=== PATIENT | female | born 1945 | race Caucasian/White ===

== ENCOUNTER 2016-12-28 13:02 | Emergency (ER) | payer MEDICARE, OTHER ==
[2016-12-28 14:04] VITALS: BP 114/63
--- NOTE | 2016-12-29 07:14 | ED Physician Documentation ---
Lower Extremity Problem - HISTORIAN Historian: patient - HPI Stated Complaint: Cat scratch Chief Complaint: Lower Extremity Problem Additional Information: scratched by feral cat right foot 6 days ago, on amoxicillin x 3-4 days, worse Location of Injury: R foot Onset: days ago (6) Timing: worse, persistent since Recent Injury: Yes (scratched by cat) Where: home Severity: moderate Quality: swelling, tenderness Front/Back of Body, Lg (Color): 1 - redness Exacerbated By: nothing Relieved By: nothing Associated Symptoms: denies: chest pain, shortness of breath, rapid heart rate, fainting Further Comments: no - ROS CONST: no problems MS/SKIN/LYMPH: leg pain, other (foot swelling and pain) CVS/RESP: none GI/: none EYES/ENT: none NERUO/PSYCH: denies: headache, difficulty walking, dizziness, anxiety, depression - PAST HX Past History: other (hyperlipidemia, htn) PE Risk Factors: hypertension Surgeries/Procedures: none Immunizations: tetanus Allergies/Adverse Reactions: Allergies Allergy/AdvReac Type Severity Reaction Status Date / Time codeine AdvReac Mild Nausea/Vomi Verified 12/28/16 13:27 ting Home Medications: Ambulatory Orders Medication Instructions Recorded Amlodipine Besylate [Amlodipine 10 mg D 06/20/13 Besylate] Hydrochlorothiazide 25 mg D 06/20/13 [Hydrochlorothiazide] Simvastatin [Simvastatin] 40 mg D 06/20/13 - SOCIAL HX Smoking History: non-smoker Alcohol Use: none Drug Use: none - FAMILY HX Family History: no significant history - VITAL SIGNS Vital Signs: Vital Signs Temp Pulse Resp BP Pulse Ox 97.9 F 82 16 114/63 99 12/28/16 13:07 12/28/16 14:02 12/28/16 14:02 12/28/16 14:02 12/28/16 14:02 - REVIEWED ASSESSMENTS Nursing Assessment Reviewed: Yes Vitals Reviewed: Yes Progress - Results/Orders Results/Orders: no testing ordered - Progress Progress: pt. given 1 gram rocephin im in er Critical Care Note - Critical Care Note Total Time (mins): 0 ED Results Lab/Radiology - Lab Results Lab Results: culture of scratch taken - Radiology Radiology Impressions: none taken - Orders Orders: ED Orders Category Date Time Status WOUND CULTURE Routine Lab 12/28/16 14:50 Received Lower Extremity Problem - EXAM General Appearance: moderate distress Hips: right hip: non-tender, normal inspection, normal range of motion, no evidence of injury Legs: right: non-tender, normal range of motion, other (redness, warmth skin right distal leg) Knees: right: non-tender, normal inspection, normal range of motion, no evidence of injury Ankle: right: other (selling, reness, warmth skin right ankle) Foot: right foot: other (laceration scabbed, foot skin reddened and warm, swollen) DTR - Lower Extremities: knee (R): 2+, knee (L): 2+, ankle (R): 2+, ankle (L): 2 + Neuro/Tendon: normal sensation, normal motor functions, normal tendon functions , no evidence tendon injury EENT: eye inspection normal, ENT inspection normal, pharynx normal, no signs of dehydration, ANGELO, no nystagmus, TM's nml RESPIRATORY: no resp distress, chest non-tender, breath sounds normal CVS: reg rate & rhythm, heart sounds normal, equal pulses JOINT: joints nml, nml ROM VASCULAR: no vascular compromise, pulses full/equal NEURO/PSYCH: oriented X3, CN's nml as tested SKIN: other (erythema right foot, ankle and lower leg) BACK: normal inspection, no CVA tenderness Discharge Clincal Impression: Cellulitis Qualifiers: Site of cellulitis: extremity Site of cellulitis of extremity: lower extremity Laterality: right Qualified Code(s): L03.115 - Cellulitis of right lower limb Referrals: Anali Samuel MD [Primary Care Provider] - 2 Days Home Medications: Ambulatory Orders Amlodipine Besylate [Amlodipine Besylate] 10 mg D 06/20/13 Hydrochlorothiazide [Hydrochlorothiazide] 25 mg D 06/20/13 Simvastatin [Simvastatin] 40 mg D 06/20/13 Comments: Discharged with script for Bactrm DS 1 p.o. bid x 10 days, wash laceration site daily with soap and water, dry, apply amalia and band aid Condition: Stable Disposition: 01 HOME, SELF-CARE Decision to Admit: NO Decision Time: 14:00
== END 2016-12-28 13:57 | disposition home or self-care (01) ==
LOC: ED 13:02
DX: L03.115 Cellulitis of right lower limb (principal)
CPT/HCPCS: 87070; 87186; 96372; 99283

== ENCOUNTER 2018-08-31 17:09 | Emergency (ER) | payer MEDICARE, OTHER ==
[2018-08-31] MEDS ORDERED: Lidocaine 1% 5ml 10 MG/ML VIAL IJ ONE (17:40)
[2018-08-31] MEDS ORDERED: methylPREDNISolone SOD SUCC 125 MG/2 ML VIAL IM ONE (17:40)
[2018-08-31] MEDS ORDERED: cefTRIAXone SODIUM 1 GM INJ IM ONE (17:40)
--- NOTE | 2018-08-31 17:43 | ED Physician Documentation ---
Upper Respiratory Symptoms - HPI Stated Complaint: Sinus congestion Chief Complaint: Cough/ Upper Respiratory Additional Information: Patient presents to ED with a 7-10 day history of nasal congestion and cough. Denies fever. Onset: days ago (7) Duration: constant Context: denies: recent foreign travel Severity: mild Associated Symptoms: sinus pain, sinus drainage, headache. denies: fever Worsened by Deep Breath: No Further Comments: no - ROS CONST/EYES: denies: weakness CVS/RESP: none LYMPH: denies: leg swelling GI/: none NEURO/PSYCH: denies: fainting, dizziness MS/SKIN: denies: muscle aches - PAST HX Lung Disease: none Surgeries/Procedures: none Allergies/Adverse Reactions: Allergies Allergy/AdvReac Type Severity Reaction Status Date / Time codeine AdvReac Mild Nausea/Vomi Verified 08/31/18 17:16 ting Home Medications: Ambulatory Orders Medication Instructions Recorded Amlodipine Besylate 10 mg PO D 06/20/13 Hydrochlorothiazide 25 mg PO D 06/20/13 Simvastatin 40 mg PO D 06/20/13 Cephalexin [Keflex] 500 mg PO QID #40 capsule 08/31/18 - SOCIAL HX Smoking History: non-smoker Alcohol Use: none Drug Use: none - FAMILY HX Family History: none - VITAL SIGNS Vital Signs: Vital Signs Temp Pulse Resp BP Pulse Ox 98.2 F 88 19 167/71 98 08/31/18 17:09 08/31/18 17:09 08/31/18 17:09 08/31/18 17:09 08/31/18 17:09 - REVIEWED ASSESSMENTS Nursing Assessment Reviewed: Yes Vitals Reviewed: Yes ED Results Lab/Radiology - Orders Orders: ED Orders Category Date Time Status Lidocaine 1% 5ml(IM or SUTURE) [Xylocaine] Med 08/31/18 17:40 Discontinued 50 mg IJ NOW ONE cefTRIAXone SODIUM [Rocephin] Med 08/31/18 17:40 Discontinued 1 gm IM NOW ONE methylPREDNISolone SOD SUCC [Solu-MEDROL] Med 08/31/18 17:40 Discontinued 125 mg IM NOW ONE Upper Respiratory Symptoms - EXAM General Appearance: no acute distress, alert EENT: PERRL, nose nml Neck: normal inspection, supple Respiratory: no resp. distress, breath sounds nml, speaks full sentences Abdomen: non-tender, no distention CVS: reg rate & rhythm, heart sounds normal, equal pulses Skin: color nml, no rash, warm,dry Extremities: non-tender, no edema Neuro/Psych: oriented x3, mood/affect nml Discharge Clincal Impression: Upper respiratory infection, viral Prescriptions: Cephalexin [Keflex] 500 mg PO QID #40 capsule Referrals: Anali Samuel MD [Primary Care Provider] - 2 Days Additional Instructions: 1. Tylenol and/or ibuprofen as needed for pain/fever 2. Sinus irrigation may be helpful 3. Mucinex daily until antibiotics are complete 4. Cool mist vaporizer with sleep 5. Follow up with PCP yadira 1 week. 6. Return to ER for new or worsening symptoms. Condition: Stable Disposition: 01 HOME, SELF-CARE Decision to Admit: NO Date of Decison to Admit: 08/31/18 Decision Time: 18:04
[2018-08-31 18:22] VITALS: BP 159/74
== END 2018-08-31 18:20 | disposition home or self-care (01) ==
LOC: ED 17:09
DX: J06.9 Acute upper respiratory infection, unspecified (principal)
CPT/HCPCS: 96372; 99283; J0696; J2930

== ENCOUNTER 2018-12-12 15:40 | Emergency (ER) | payer MEDICARE, OTHER ==
[2018-12-22 17:33] LABS: APPEARANCE,URINE CLOUDY (CLEAR); COLOR,URINE YELLOW (YELLOW); OCCULT BLOOD,URINE 2+ (NEGATIVE); UROBILINOGEN URINE 0.2 Eu (0.2-1.0)
== END 2018-12-12 16:12 ==
LOC: ED 15:40
DX: N39.0 Urinary tract infection, site not specified (principal); B96.20 Unspecified Escherichia coli [E. coli] as the cause of diseases classified elsewhere; Z16.11 Resistance to penicillins
CPT/HCPCS: 81002; 87086; 99283

== ENCOUNTER 2018-12-13 01:32 | Emergency (ER) | payer MEDICARE, OTHER ==
[2018-12-22 18:14] LABS: eGFR (Non-African) > 60
[2018-12-22 18:15] LABS: BASOPHILS % 0.5 % (0.0-1.5); NEUTROPHILS # 10.1 # k/uL (1.4-7.7)
== END 2018-12-13 02:55 ==
LOC: ED 01:32
DX: N39.0 Urinary tract infection, site not specified (principal)
CPT/HCPCS: 80053; 85025; 99283

== ENCOUNTER 2019-01-18 13:01 | Emergency (ER) | payer MEDICARE, OTHER ==
[2019-01-18 13:26] VITALS: BP 154/87
--- NOTE | 2019-01-18 13:26 | ED Physician Documentation ---
Upper Respiratory Symptoms - HISTORIAN Historian: patient - HPI Chief Complaint: Cough/ Upper Respiratory Additional Information: Patient is a 73-year-old female who presents with c/o cough that started Saturday (7 days ago)- she was seen in [place] at Urgent care on Saturday and started on Doxycycline, Medrol dose pack, ProAir, Tessalon Pearles, and Promethazine with codeine. She still c/o cough. She denies any fever, chills, shortness of breath, or chest pain. She states the cough is non productive- no shortness of breath on exertion. Onset: days ago Duration: constant Context: denies: recent foreign travel, insect bite(s) Severity: mild Associated Symptoms: other (non-productive cough). denies: fever, chills, runny nose, sinus pain Worsened by Deep Breath: No - ROS CONST/EYES: denies: weakness CVS/RESP: none LYMPH: denies: leg swelling, swollen glands GI/: none NEURO/PSYCH: denies: fainting, dizziness MS/SKIN: denies: joint pain, muscle aches - PAST HX Lung Disease: other (none) PE Risk Factors: hypertension, other (HLD) Surgeries/Procedures: cholecystectomy, other (dental) Immunizations: UTD Allergies/Adverse Reactions: Allergies Allergy/AdvReac Type Severity Reaction Status Date / Time codeine AdvReac Mild Nausea/Vomi Verified 01/18/19 13:20 ting Home Medications: Ambulatory Orders Medication Instructions Recorded Amlodipine Besylate 10 mg PO D 06/20/13 Hydrochlorothiazide 25 mg PO D 06/20/13 Simvastatin 40 mg PO D 06/20/13 Hydrochlorothiazide 25 mg PO DAILY 01/18/19 - SOCIAL HX Smoking History: non-smoker Alcohol Use: none Drug Use: none - FAMILY HX Family History: none - VITAL SIGNS Vital Signs: Vital Signs Temp Pulse Resp BP Pulse Ox 159/74 08/31/18 18:14 - REVIEWED ASSESSMENTS Nursing Assessment Reviewed: Yes Vitals Reviewed: Yes Upper Respiratory Symptoms - EXAM General Appearance: no acute distress, alert EENT: eyes nml inspection, nml ENT inspection, PERRL, pharynx nml, airway nml Neck: normal inspection Respiratory: no resp. distress, rhonchi (upper lobe- clears with cough) Abdomen: nml bowel sounds CVS: heart sounds normal, equal pulses Skin: color nml, no rash, warm,dry Extremities: non-tender, normal range of motion Neuro/Psych: oriented x3, neuro intact, mood/affect nml Discharge Clincal Impression: Upper respiratory infection, viral Referrals: Anali Samuel MD [Primary Care Provider] - 2 Days Additional Instructions: 1. Sinus irrigation may be helpful 2. Mucinex twice a day until antibiotics are complete 3. Cool mist vaporizer with sleep 4. Zyrtec 10 mg daily 5. Follow up with PCP within 1 week 6. Continue with Doxycycline, Medrol Dose Pack, Tessalon Pearles, and ProAir inhaler 7. Return to ER for new or worsening symptoms. Condition: Good Disposition: 01 HOME, SELF-CARE Decision to Admit: NO Decision Time: 13:30
== END 2019-01-18 13:29 | disposition home or self-care (01) ==
LOC: ED 13:01
DX: J06.9 Acute upper respiratory infection, unspecified (principal)
CPT/HCPCS: 99283

== ENCOUNTER 2019-05-11 05:54 | Emergency (ER) | payer MEDICARE, OTHER ==
--- NOTE | 2019-05-11 05:58 | ED Physician Documentation ---
General Adult - HISTORIAN Historian: patient - HPI Stated Complaint: cramping at times Chief Complaint: Female Urogenital Problems Onset: days ago (2) Timing: better Further Comments: yes (She states she had some mild cramping in the bladder area in between urinating. No fever. No pain with urination. No frequency change) - ROS CONST: no problems - PAST HX Past History: hypertension Immunizations: UTD Allergies/Adverse Reactions: Allergies Allergy/AdvReac Type Severity Reaction Status Date / Time codeine AdvReac Mild Nausea/Vomi Verified 01/18/19 13:20 ting Home Medications: Ambulatory Orders Medication Instructions Recorded Amlodipine Besylate 10 mg PO D 06/20/13 Hydrochlorothiazide 25 mg PO D 06/20/13 Simvastatin 40 mg PO D 06/20/13 Hydrochlorothiazide 25 mg PO DAILY 01/18/19 - SOCIAL HX Smoking History: non-smoker Alcohol Use: none Drug Use: none - FAMILY HX Family History: Yes - VITAL SIGNS Vital Signs: Vital Signs Temp Pulse Resp BP Pulse Ox 154/87 01/18/19 13:29 - REVIEWED ASSESSMENTS Nursing Assessment Reviewed: Yes Vitals Reviewed: Yes General Adult Physical Exam - PHYSICAL EXAM GENERAL APPEARANCE: no distress EENT: eye inspection normal, ENT inspection normal, no signs of dehydration NECK: normal inspection RESPIRATORY: no resp distress, chest non-tender, breath sounds normal CVS: reg rate & rhythm, heart sounds normal ABDOMEN: soft, normal bowel sounds, no distension, non-tender BACK: normal inspection, no CVA tenderness EXTREMITIES: non-tender NEURO: oriented X3 Discharge Clincal Impression: Dysuria Referrals: Anali Samule MD [Primary Care Provider] - 2 Days Comments: 1. Increase fluids 2. OTC Meds as needed as directed for pain or symptom management 3. Follow up with PCP 4. Return to ER for any increased concerns Condition: Stable Disposition: 01 HOME, SELF-CARE Decision to Admit: NO Date of Decison to Admit: 05/11/19 Decision Time: 06:16
[2019-05-11 07:03] VITALS: BP 141/65
[2019-05-11 11:37] LABS: APPEARANCE,URINE CLEAR (CLEAR); COLOR,URINE YELLOW (YELLOW); OCCULT BLOOD,URINE NEGATIVE (NEGATIVE)
[2019-05-11 11:38] LABS: UROBILINOGEN URINE 0.2 Eu (0.2-1.0)
== END 2019-05-11 06:20 | disposition home or self-care (01) ==
LOC: ED 05:54
DX: R30.0 Dysuria (principal)
CPT/HCPCS: 81002; 99281; 99282

== ENCOUNTER 2019-05-17 18:14 | Emergency (ER) | payer MEDICARE, OTHER ==
[2019-05-17 18:44] VITALS: BP 145/70
--- NOTE | 2019-05-17 18:45 | ED Physician Documentation ---
General Adult - HISTORIAN Historian: patient - HPI Stated Complaint: burning on urination Chief Complaint: General Adult Onset: days ago (7) Timing: still present Severity: moderate Further Comments: yes (Pt is a 73 yo female with dysuria and frequency that has been going on for a week. Pt was seen here 05/11/19, but u/a was neg. Pt was seen 05/15/19 in [place] and was rx'd Macrobid, but sx persist. Pt has not had n/v/fever. No back pain. Dysuria and frequency have increased however. Pt also has hx diverticulitis. BM's are normal at this time.) - ROS CONST: no problems EYES/ENT: none CVS/RESP: none GI/: problems urinating MS/SKIN/LYMPH: none - PAST HX Past History: other (HTN, HLD) Surgeries/Procedures: cholecystectomy, other (dental surgery) Allergies/Adverse Reactions: Allergies Allergy/AdvReac Type Severity Reaction Status Date / Time codeine AdvReac Mild Nausea/Vomi Verified 05/17/19 18:34 ting Home Medications: Ambulatory Orders Medication Instructions Recorded Simvastatin 40 mg PO D 06/20/13 Hydrochlorothiazide 25 mg PO DAILY 01/18/19 Ciprofloxacin HCl [Cipro] 250 mg PO BID #14 tablet 05/17/19 Losartan Potassium [Cozaar] 100 mg PO DAILY 05/17/19 - SOCIAL HX Smoking History: quit greater than 1 year - FAMILY HX Family History: No - VITAL SIGNS Vital Signs: Vital Signs Temp Pulse Resp BP Pulse Ox 98.4 F 90 18 145/70 97 05/17/19 18:15 05/17/19 18:15 05/17/19 18:15 05/17/19 18:15 05/17/19 18:15 - REVIEWED ASSESSMENTS Nursing Assessment Reviewed: Yes Vitals Reviewed: Yes Progress - Progress Progress: Ciprofloxacin 500 mg po in ER. Rx Ciprofloxacin 250 mg. Take one every 12 hours for 7 days. General Adult Physical Exam - PHYSICAL EXAM GENERAL APPEARANCE: no distress NECK: normal inspection, supple RESPIRATORY: no resp distress, chest non-tender, breath sounds normal CVS: reg rate & rhythm, heart sounds normal ABDOMEN: soft, no organomegaly, normal bowel sounds BACK: normal inspection, no CVA tenderness SKIN: warm/dry, normal color EXTREMITIES: non-tender, normal range of motion, no evidence of injury NEURO: oriented X3, motor nml, sensation nml Discharge Clincal Impression: UTI (urinary tract infection) Qualifiers: Urinary tract infection type: site unspecified Hematuria presence: with hematuria Qualified Code(s): N39.0 - Urinary tract infection, site not specified; R31.9 - Hematuria, unspecified Prescriptions: Ciprofloxacin HCl [Cipro] 250 mg PO BID #14 tablet Referrals: Anali Samuel MD [Primary Care Provider] - Condition: Good Disposition: 01 HOME, SELF-CARE Decision to Admit: NO Decision Time: 18:54
[2019-05-18 06:18] LABS: OCCULT BLOOD,URINE 2+ (NEGATIVE); PH URINE 6.5 (5.0 - 8.0); UROBILINOGEN URINE 0.2 Eu (0.2-1.0)
== END 2019-05-17 18:56 | disposition home or self-care (01) ==
LOC: ED 18:14
DX: N39.0 Urinary tract infection, site not specified (principal)
CPT/HCPCS: 81002; 87086; 99283; 99284